=== PATIENT | male | born 1990 | race Caucasian/White ===

== ENCOUNTER 2017-09-01 01:38 | Emergency (ER) | payer OTHER ==
[2017-09-01 01:43] VITALS: BP 146/81; PULSE 62; TEMP 98.4; BMI 34.0
--- NOTE | 2017-09-01 01:47 | PDOC ---
History of Present Illness - General Chief Complaint: Abscess Boil Stated Complaint: ABSCESS Time Seen by Provider: 09/01/17 01:43 History Source: Patient Exam Limitations: No Limitations - History of Present Illness Initial Comments: 09/01/17 01:43 This is a 27-year-old male comes in complaining of an ingrown hair on his buttocks area 1 year. Patient said that yesterday it was painful and that it drained some but today it doesn't hurt but he decided to come in and have it evaluated. Patient denies any fevers or chills. Patient denies any other complaints. Patient is otherwise healthy. PAST MEDICAL HISTORY: no significant history PAST SURGICAL HISTORY: no significant history FAMILY HISTORY: no pertinant history SOCIAL HISTORY: Pt lives with family and is employed. MEDICATIONS: reviewed ALLERGIES: As per nursing notes Review of Systems General: No fevers or chills, no weakness, no weight loss HEENT: No change in vision. No sore throat,. No ear pain CardioVascular: No chest pain or shortness of breath Respiratory:No cough, or wheezing. Gastrointestinal: no nausea, vomitting, diarrhea or constipation, No rectal bleeding Genitourinary: No dysuria, hematuria, or frequency Musculoskeletal: No joint or muscle pain or swelling Neurologic: No headache, vertigo, dizziness or loss of consciousness Psychiatric: nor depression Skin: Ingrown hair as per history of present illness Endocrine: no increased thirst or abnormal weight change Allergic: no skin or latex allergy All other systems reviewed and normal GENERAL: The patient is awake, alert, and fully oriented, in no acute distress. HEAD: Normal with no signs of trauma. EYES: Pupils equal, round and reactive to light, extraocular movements intact, sclera anicteric, conjunctiva clear. EXTREMITIES: Normal range of motion, no edema. Buttock: There is a small firm lump without any erythema, discharge, fluctuance , tenderness, increased warmth in the area of the upper crack of the buttocks. NEUROLOGICAL: Normal speech, normal gait. grossly intact PSYCH: Normal mood, normal affect. SKIN: Warm, Dry, normal turgor, no rashes or lesions noted. Assessment and plan: This is a 27-year-old male who comes in complaining of a bump on his buttocks that he attributes to an ingrown hair. There is a small firm area that has no tenderness or discharge. Patient was reassured that this is not anything that needs to be addressed tonight or taking care of in the emergency room that he should follow-up with his primary care doctor Location: reports: other Past History - Past Medical History Allergies/Adverse Reactions: Allergies Allergy/AdvReac Type Severity Reaction Status Date / Time No Known Allergies Allergy Unverified 09/01/17 01:39 Home Medications: Ambulatory Orders NK [No Known Home Medication] 09/01/17 - Suicide/Smoking/Psychosocial Hx Smoking History: Current every day smoker Number of Cigarettes Smoked Daily: 10 Information on smoking cessation initiated: No *Physical Exam - Vital Signs Last Vital Signs Temp Pulse Resp BP Pulse Ox 98.4 F 62 16 146/81 100 09/01/17 01:40 09/01/17 01:40 09/01/17 01:40 09/01/17 01:40 09/01/17 01:40 *DC/Admit/Observation/Transfer Diagnosis at time of Disposition: Buttocks nodule - Discharge Dispostion Disposition: HOME Condition at time of disposition: Stable Decision to Admit order: No - Referrals - Patient Instructions Additional Instructions: Return to the emergency department immediately with ANY new, persistent or worsening symptoms. Continue any medications as previously prescribed by your physician. You should follow up with your primary doctor as soon as possible regarding today's emergency department visit. . Please make sure your doctor reviews the results of your emergency evaluation. Thank you for coming to the Emergency Department today for your care. It was a pleasure to see you today. Please note that your evaluation is INCOMPLETE until you follow-up with your doctor. - Post Discharge Activity
== END 2017-09-01 01:55 | disposition home or self-care (01) ==
LOC: FER 01:38
DX: L02.31 Cutaneous abscess of buttock (principal); F17.210 Nicotine dependence, cigarettes, uncomplicated
CPT/HCPCS: 99281-25